=== PATIENT | male | born 1995 | race African-American/Black ===

== ENCOUNTER 2017-10-25 21:37 | Emergency (ER) | payer OTHER ==
[~2017-10-25] VITALS: Ht 185.4 cm; Wt 87.6 kg
[~2017-10-25 21:37] MED LIST: FLOVENT HFA10.6 GM IH; SINGULAIR4 MG PO; VENTOLIN17 GM IH
[2017-10-25] MEDS ORDERED: ALLEGRA ALLERG180 MG PO (22:41)
[2017-10-25] MEDS ORDERED: FLONASE16 G1 BOTH NARES (22:41)
[2017-10-25] MEDS ORDERED: NAPROSYN500 MG PO (22:41)
[2017-10-25] MEDS ORDERED: CEFDINIR300 MG PO (22:41)
[2017-10-25] MEDS ORDERED: MUCINEX D ER T1 EACH PO (22:41)
[2017-10-25 23:03] VITALS: BP 126/82
== END 2017-10-25 23:04 | disposition home or self-care (01) ==
LOC: EXP 21:37 → EME 21:37 → EXP 23:04
DX: J32.9 Chronic sinusitis, unspecified (principal); J30.9 Allergic rhinitis, unspecified
CPT/HCPCS: 87502; 87651 90; 99281; 99284